=== PATIENT | female | born 1930 | race Caucasian/White ===

== ENCOUNTER → 2017-07-10 | Day surgery (SDC) | payer MEDICARE ==
[~2017-07-10] MED LIST: APIXABAN PO; ATORVASTATIN CA10 MG PO; BACITRACIN 50,000 UNIT VIAL ONE; BUPIVACAINE HCL 0.5% INJ 30 ML VIAL INJ ONE; CEFAZOLIN SOD 1 GM VIAL ONE; DEXAMETHASONE SOD PHOS INJ 4 MG/ML VIAL ONE; EPHEDRINE SULFATE INJ 50 MG/10 ML SYR ONE; FENTANYL CITRATE/PF 100MCG/2 ML INJ ONE; GLYCOPYRROLATE INJ 1MG/ 5 ML SYR ONE; KLOR-CON 1010 MEQ PO; LASIX20 MG PO; LASIX40 MG PO; LEVOTHYROXINE112 MCG PO; LIDOCAINE HCL 2% LOCAL INJ 5 ML SDV VIAL INJ ONE; LISINOPRIL10 MG PO; MUPIROCIN 2% OINT 22 GM TUBE ONE; ONDANSETRON HCL INJ 2 MG/ML VIAL ONE; PHENYLEPHRINE HCL 1% 10 MG/ML VIAL ONE; PROPOFOL IV EMULSION 10 MG/ML 20 ML VIAL ONE; SEVOFLURANE INHAL SOLN 250 ML PEN BTL ONE; SOTALOL80 MG PO
--- NOTE | 2017-07-10 07:10 | Diagnostic Imaging Report ---
PROCEDURE: X-RAY CHEST, TWO VIEWS COMPARISON: None. INDICATIONS: PRE OPERATIVE CHEST X-RAY FOR LEFT ELBOW SURGERY FINDINGS: Lungs are well-inflated. There are coarse reticular opacities throughout the lungs with an associated left pleural effusion versus chronic pleural thickening. Normal heart size without pulmonary edema. No acute osseous abnormalities. Multilevel degenerative disc changes. Atherosclerotic calcification of the thoracoabdominal aorta. CONCLUSION: Coarse reticular opacities bilaterally may reflect age-related fibrotic change or sequela of prior infectious-inflammatory process. Small left pleural effusion versus chronic left basal pleural thickening. Dictated by: Silvio Whatley M.D. on 07/10/2017 at 7:12 Electronically approved by: Silvio Whatley M.D. on 07/10/2017 at 7:12
--- NOTE | 2017-07-10 15:13 | Operative Report ---
DATE OF PROCEDURE: July 10, 2017 PREOPERATIVE DIAGNOSES 1. Open wound left olecranon with exposed hardware. 2. Infection and inflammatory reaction due to internal hardware, left ulna/olecranon. 3. Osteomyelitis, left ulna/olecranon. POSTOPERATIVE DIAGNOSES 1. Open wound left olecranon with exposed hardware. 2. Infection and inflammatory reaction due to internal hardware, left ulna/olecranon. 3. Osteomyelitis, left ulna/olecranon. PROCEDURES 1. Removal of hardware, left olecranon/ulna. 2. Adipofascial flap closure 25 cm squared of left elbow. ANESTHESIA: General. HISTORY: The patient is an 87-year-old female who apparently fell in January 2017. She sustained a fracture of the left ulna and olecranon in the left hip. On , she underwent repair by the orthopedic service of the left hip and the left olecranon. During her postoperative course, the incision over the left olecranon broke down and the plate became exposed. The patient was sent to plastic surgery for hardware removal and flap closure to prevent exposed bone from developing osteomyelitis. However, the patient developed significant medical comorbidities and was hospitalized for a prolonged period of time. The patient did not return to the plastic surgery service and was not cleared for general anesthesia until recently. She now presents for removal of the infected hardware and flap closure of the exposed olecranon. The risks, benefits, and alternatives to treatment were discussed with both the patient and the family. They are prepared to undergo the procedures outlined. DETAILS OF PROCEDURE: Patient was marked preoperatively in the holding area. She is brought to the operating theater. After the induction of adequate general anesthesia, she is prepped and draped in a supine position. A time out is performed. The C-arm fluoroscope is brought in and placement of the plate and screws is verified. The wound measures approximately 3 cm in diameter and is directly over the plate and screws, which is directly over the olecranon. The previous surgical incision is marked out both proximally and distally over the plate. The incision is made through the skin and subcutaneous tissues. Bleeding is controlled using the electrocautery. The incision is deepened through the subcutaneous tissues directly over the titanium plate. The tissues are then retracted away from the plate and using the screw extraction set, all the screws are removed without difficulty. A plate is then removed as well. Post removal, our C-arm fluoroscope view is obtained and it shows no retained plate or screws. At this point, the wound is irrigated with bacteriostatic saline. It is apparent that the olecranon will be exposed and less vascularized tissue can be placed over it in the direct subcutaneous space. At this point, an adipofascial flap is designed by dissecting the undersurface of the skin on the dorsal aspect up to the level of the lateral epicondyle. The fascia is incised and released from the lateral epicondyle and then it is dissected distally as a distally based flap. Once sufficient length has been obtained, it is rotated down and it is noted to cover the olecranon satisfactorily without tension. At this point, the wound is irrigated with antibiotic-containing solution. The flap is then inset using 2-0 Vicryl sutures in an interrupted fashion. It is noted to cover the olecranon completely. At this point, the deep subcutaneous tissues both proximal and distal to the olecranon are closed with 2-0 Vicryl in an interrupted fashion as well. The wound is irrigated again and then the skin is closed with 4-0 nylon in an interrupted horizontal mattress fashion. Marcaine field block is performed at the operative site. Bactroban ointment, Xeroform gauze, and sterile bulking conforming bandage are applied to the region. The patient tolerates the procedure well. The estimated blood loss for procedure is approximately 25 to 50 mL. She is returned to recovery room in satisfactory condition and discharged with a postoperative instruction sheet as well as a followup appointment. Job#: [id number] CHAI
== END | disposition home or self-care (01) ==
LOC: OR 05:27
PROVIDERS: ATTEND Plastic Surgery
DX: T84.615A Infection and inflammatory reaction due to internal fixation device of left ulna, initial encounter (principal); M86.9 Osteomyelitis, unspecified; S51.002A Unspecified open wound of left elbow, initial encounter; I69.334 Monoplegia of upper limb following cerebral infarction affecting left non-dominant side; J44.9 Chronic obstructive pulmonary disease, unspecified; I11.0 Hypertensive heart disease with heart failure; I50.9 Heart failure, unspecified; I48.91 Unspecified atrial fibrillation; E03.9 Hypothyroidism, unspecified; Y83.8 Other surgical procedures as the cause of abnormal reaction of the patient, or of later complication, without mention of misadventure at the time of the procedure; X58.XXXA Exposure to other specified factors, initial encounter; Z99.81 Dependence on supplemental oxygen; Z79.02 Long term (current) use of antithrombotics/antiplatelets
CPT/HCPCS: 15736; 20680; 71046; 76000; J0690; J1100; J2001; J2370; J2405